=== PATIENT | female | born 1995 | race Caucasian/White ===

== ENCOUNTER 2020-10-22 01:13 | Inpatient (IN) ==
[~2020-10-22 01:13] MED LIST: *HR* FentaNYL (PF) 100 MCG/2 ML VIAL IVP PRN; Famotidine 20 MG/2 ML VIAL IVP PRN; Metoclopramide 10 MG/2 ML VIAL IVP PRN; Naloxone 0.4 MG/ML INJ IVP PRN
[2020-10-22] MEDS ORDERED: Azithromycin 500 MG in 0.9 % Sodium Chloride 250 ML IVPB ONE (01:15)
[2020-10-22] MEDS ORDERED: Ringers Solution, Lactated 1,000 ML IVC SCH (01:15)
[2020-10-22] MEDS ORDERED: Ondansetron 4 MG/2 ML VIAL IVP PRN (01:15)
[2020-10-22 01:41] LABS: Basophils % 0.2 %; Eosinophils % 0.4 %; Hematocrit 42.4 % (35.3-44.9); Hemoglobin 14.2 g/dL (11.5-15.4); Immature Granulocytes % 0.4 % (0-4); Lymphocytes # 1.3 K/mcL (0.6-4.6); Lymphocytes % 12.2 %; Mean Corpuscular HGB Conc 33.5 g/dL (31.6-35.5); Mean Corpuscular Hemoglobin 30.8 pg (28.0-33.3); Mean Platelet Volume 12.2 fL (9.4-12.4); Monocytes # 0.5 K/mcL (0.0-1.3); Monocytes % 4.9 %; Platelet Count 170 K/mcL (140-400); Red Blood Count 4.61 M/mcL (3.82-4.97); Red Cell Distribution Width 12.6 % (11.5-14.5); Segmented Neutrophils % 81.9 %
[2020-10-22 01:46] LABS: Amphetamine Screen,Urine Negative ng/mL (Cutoff=1000); Barbiturate Screen,Urine Negative ng/mL (Cutoff=200); Benzodiazepines Screen,Urine Negative ng/mL (Cutoff=200); Cannabinoid Screen,Urine Negative ng/mL (Cutoff = 50); Cocaine Screen,Urine Negative ng/mL (Cutoff= 300); Opiate Screen,Urine Negative ng/mL (Cutoff=300); Phencyclidine Screen,Urine Negative ng/mL (Cutoff=25)
[2020-10-22] MEDS ORDERED: Lidocaine 1% 20 ML MDV ONE (02:28)
[2020-10-22] MEDS ORDERED: Oxytocin 20 units/ LR 1000 mL 20 UNIT/1,000 ML BAG IVC ONE (02:28)
[2020-10-22] MEDS ORDERED: Ibuprofen 600 MG TABLET PO PRN (04:57)
[2020-10-22] MEDS ORDERED: Acetaminophen 325 MG TABLET PO PRN (04:57)
[2020-10-22] MEDS ORDERED: Lanolin 7 G OINT...G. TP PRN (04:57)
[2020-10-22] MEDS ORDERED: Benzocaine/Menthol 56 GM AEROSOL SPRAY TP PRN (04:57)
[2020-10-22] MEDS ORDERED: Measles/Mumps/Rubella Vacc 0.5 ML VIAL SQ PRN (04:57)
[2020-10-22] MEDS ORDERED: Oxytocin 20 units/ LR 1000 mL 20 UNIT/1,000 ML BAG IVC SCH (04:57)
[2020-10-22] MEDS: Prenatal Vit/FA 1 EACH TABLET PO SCH (07:37)
[2020-10-23 07:50] VITALS: BP 107/64
[2020-10-23] MEDS: Prenatal Vit/FA 1 EACH TABLET PO SCH (08:15)
== END 2020-10-23 12:00 | disposition home or self-care (01) | DRG 807 ==
LOC: 1NENULAB → 1NENUOBS 04:57
PROVIDERS: ADMIT Registered Nurse; ATTEND Registered Nurse